=== PATIENT | male | born 1985 | race Caucasian/White ===

== ENCOUNTER 2016-08-18 23:07 | Inpatient (IN) | payer OTHER ==
[~2016-08-18] VITALS: Ht 177.8 cm; Wt 166.8 kg
--- NOTE | ~2016-08-18 | H ---
[facility] [place] [address] [place] [address] HISTORY AND PHYSICAL Name: RADHA HARDEN Room #: 441-P ADM IN M.R.#: [id number] Admission: 08/19/16 Attend Phys: Lacie Kerns MD Discharge: Date of : 89 Report #: [id number] THIS REPORT FOR: //name// CC: Jairo Kerns DATE OF SERVICE: 08/19/2016 CHIEF COMPLAINT: Dizziness and near syncope. HISTORY OF PRESENT ILLNESS: The patient is a 31-year-old male with history of hypertension, known to me from his admission at [facility], was transferred from [facility] for dizziness and near syncope. The patient has had dizziness and lightheadedness since last Wednesday. He describes a spinning sensation with some unsteady gait. The patient was initially seen in the ER at [facility] last Wednesday and then discharged from the ER and subsequently seen on Wednesday and was admitted to [facility]. He has had extensive workup done including a CT of the brain which was normal. He had a CT angio of the head and neck yesterday, which has been normal. He had an echocardiogram which showed normal ejection fraction. He had a V/Q scan done, which was reported as low probability for PE. The patient was evaluated by floral department specialist at [facility] and was advised outpatient stress test and was discharged yesterday back home. The patient presented back to [facility] ER yesterday evening because of persistent dizziness. He was subsequently transferred to [facility] for further care. He had dizziness with an episode of fall. The patient denies any loss of consciousness. No headache. Denies any visual disturbance. Denies any focal numbness or weakness of the extremity. No nausea, vomiting. No fever or chills. PAST MEDICAL HISTORY: Significant for hypertension and anxiety. PAST SURGICAL HISTORY: Knee surgery. HOME MEDICATIONS: Include lisinopril, Lexapro and aspirin. FAMILY HISTORY: Significant for hypertension and heart disease. REVIEW OF SYSTEMS: CONSTITUTIONAL: No recent weight loss, weight gain. No fever or chills. EYES: No change in vision. THROAT: Denies any sore throat. CARDIOVASCULAR: No chest pain, no palpitation. He did have dizziness. RESPIRATORY: No cough, expectoration. GASTROINTESTINAL: No nausea, vomiting, abdominal pain. GENITOURINARY: No dysuria, hematuria. [facility] [address] [place] [address] HISTORY AND PHYSICAL Name: RADHA HARDEN Room #: 441-P ADM IN M.R.#: [id number] Admission: 08/19/16 Attend Phys: Lacie Kerns MD Discharge: Date of : 89 Report #: [id number] NEUROLOGIC: No focal numbness or weakness of the extremities. PSYCHIATRIC: No anxiety and depression at present. The 12-point review of system is negative other than the positive and negative dictated in the history of present illness and the review of system. PHYSICAL EXAMINATION: VITAL SIGNS: Reviewed. Blood pressure is 115/90, heart rate of 80 per minute, afebrile. GENERAL: The patient is awake and alert, not in acute respiratory distress. He is obese. His BMI is 22.8. EYES: Pupils equal, reactive to light. Throat appears normal. NECK: Supple, no JVD, no bruit, no lymphadenopathy. CARDIOVASCULAR SYSTEM: S1, S2, negative S3, no murmur. CHEST: Bilateral air entry present. Clear on auscultation. ABDOMEN: Soft, bowel sounds present, no mass, no organomegaly, no tenderness. PERIPHERY: No pedal edema. No calf tenderness. Dorsalis pedis 1+. NEUROLOGICAL: Questionable nystagmus noted. Pupils are equal, reactive to light. Extraocular movements intact. No facial asymmetry noted. No cerebral signs noted. Power is 5/5 in upper and lower extremity. LABORATORY DATA: Reviewed. CT angio of the head and neck showed no acute abnormality. He had a V/Q scan done at [facility] is normal. EKG showed normal sinus rhythm without any significant ST segment or T-wave changes. Echocardiogram showed normal LV function, diastolic function was normal. He had a CT of chest done a few days ago, which showed bulky calcified masses in both geronimo and calcific granulomas consistent with possible prior histoplasmosis, probable fatty liver. ASSESSMENT AND PLAN: 1. Persistent dizziness and near syncope. His ear examination is normal limits, tympanic membrane appears normal. We will check his orthostatic vital signs and obtain an MRI of the brain to rule out any intracranial abnormality. The patient will be monitored on telemetry. Cardiology and Neurology has been consulted. The patient is scheduled for a stress test to rule out any ischemic heart disease. 2. Hypertension. The patient will be continued on his lisinopril. 3. Anxiety. He is to continue on Lexapro. 4. Deep vein thrombosis prophylaxis. He will be started on Lovenox for deep venous thrombosis prophylaxis. 5. Abnormal CT of the chest showing calcified lymph nodes consistent with possible prior granulomatous disease, possible histoplasmosis. 6. Pulmonary will also be consulted. 7. Possible sleep apnea. [facility] [address] [place] [address] HISTORY AND PHYSICAL Name: RADHA HARDEN Room #: 441-P [facility] IN M.R.#: [id number] Admission: 08/19/16 Attend Phys: Lacie Kerns MD Discharge: Date of : 89 Report #: [id number] Treatment plan has been explained to the patient in detail. <ELECTRONICALLY SIGNED> By: Alonzo Foster MD 08/19/16 1421 [id number] Alonzo Foster MD /nt
--- NOTE | ~2016-08-18 | H ---
[facility] [place] [address] HISTORY AND PHYSICAL Name: RADHA HARDEN Room #: 441-P ADM IN M.R.#: [id number] Admission: 08/19/16 Attend Phys: Alonzo Foster MD Discharge: Date of : 89 Report #: [id number] THIS REPORT FOR: //name// CC: Jairo Kerns REASON FOR CONSULTATION: Dizziness and atypical chest pain. HISTORY OF PRESENT ILLNESS: This is a very pleasant 31-year-old gentleman who last weekend had some vertigo. He was seen in the Emergency Room down in [facility] ____. The patient was very sedentary over the weekend and on Wednesday went to work when during mid morning he started having more vertigo, dizziness, lightheadedness. He had no unusual sensations but he got so dizzy that he fell off his chair. He developed some retrosternal discomfort which is described as a pleuritic sensation. It is a heavy and sharp component. He has never had any of this before. He does not have any significant orthopnea or PND. The discomfort was improved with time for the dizziness and vertigo, it is positional in nature. He is fine as though he lies in bed without movement. He has had a CT scan of the head and MRI is pending. He denies any palpitations and any limitations to activity prior to this presentation. ALLERGIES: No known drug allergies. MEDICATIONS AT HOME: Zestril, Lexapro, and aspirin. PAST MEDICAL HISTORY: Significant for: 1. Hypertension. 2. Anxiety. 3. Remote history of migraines. PAST SURGICAL HISTORY: Knee surgery. FAMILY HISTORY: Significant for hypertension, but the mother did have significant heart disease and in her 50s of coronary artery disease. REVIEW OF SYSTEMS: Except for symptoms previously mentioned and those commensurate with comorbid states and including the medical records, the 10-point review of systems is negative. PHYSICAL EXAMINATION: GENERAL: Well-developed, well-nourished white male, resting comfortably in no acute distress. HEENT: Normocephalic, atraumatic. Pupils are equal, round, reactive to light and accommodation. Extraocular muscles are intact. Sclerae and conjunctivae are anicteric. NECK: JVD is normal. Carotid upstrokes are bilaterally symmetrical. No bruits are heard. No thyromegaly. No lymphadenopathy. [facility] [address] [place] [address] HISTORY AND PHYSICAL Name: RADHA HARDEN Room #: 441-P [facility] IN M.R.#: [id number] Admission: 08/19/16 Attend Phys: Alonzo Foster MD Discharge: Date of : 89 Report #: [id number] LUNGS: Clear to auscultation. No wheezes, rhonchi or crackles. No CVA tenderness. CARDIAC: Demonstrates a regular rhythm. Normal first and second heart sounds. No ventricular or atrial gallops, no rubs noted. No murmurs. No lifts or heaves, PMI normal. ABDOMEN: Soft, nontender, nondistended. Normal bowel sounds. EXTREMITIES: Without cyanosis, clubbing or edema. Distal pulses are intact. DTR symmetrical. NEUROLOGIC: Cranial nerves 2-12 are grossly normal and symmetrical. PSYCHIATRIC: Alert, oriented with normal affect. SKIN: Warm and dry. RADIOLOGIC: CT scan as described above without any masses. MRI is pending. IMPRESSION: 1. Dizziness and lightheadedness, multifactorial but it does appear to be benign positional vertigo. I did discuss with him googling vertigo exercises so they can perform those at home. 2. Chest pain, atypical in nature. Perfusion scan was performed which was low risk. In view of this, I do not think that we need to purse with anything further at this juncture. 3. Dyslipidemia. Discussed the [place] [employer] step 1 diet. We discussed at length daily exercise, dietary restrictions to try and minimize the risk of significant watermelon inspector issues based on such a significant maternal family history. The patient does voice understanding. <ELECTRONICALLY SIGNED> By: Mykel Castillo MD 08/20/16 [id number] Mykel Castillo MD /nt
--- NOTE | ~2016-08-18 | HC ---
[facility] [address] [address] CONSULTATION Name: RADHA HARDEN Room #: 441-P ADM IN M.R.#: [id number] Admission: 08/19/16 Attend Phys: Alonzo Foster MD Discharge: Date of : 89 Report #: [id number] THIS REPORT FOR: //name// CC: Jairo Everardo Foster MD DATE OF SERVICE: 08/19/2016 REFERRING PROVIDER: Alonzo Foster MD REASON FOR CONSULTATION: Chest pain. HISTORY OF PRESENT ILLNESS: Our group was asked to see the patient in consultation while hospitalized at [facility], a pleasant 31-year-old male without any past pulmonary history, no history of tobacco use or other pulmonary disease except for maybe asthma as a child presented to [facility] 2 days ago with complaints of sternal chest pressure, felt like somebody is sitting on his chest when he awakened from sleep, also been consistent with some dizziness and lightheadedness. Denies any significant cough, congestion or wheezing or exertional dyspnea. Workup at that time was negative and was discharged, however, represented yesterday evening and was transferred for further management. The patient has had workup including ventilation and perfusion scan which revealed normal perfusion. Echocardiogram which showed no right ventricular dilatation, dysfunction or findings of pulmonary hypertension. CT of the chest, which revealed some calcifications, some right upper lobe fibrotic changes and some mediastinal lymph node suggestive of old granulomatous disease, no acute process identified, although CT images are not available to me at this time. He is awaiting further cardiac workup. Symptoms are not present at the time of my evaluation. ALLERGIES: None known. PAST MEDICAL HISTORY: 1. Hypertension. 2. Asthma as a child. 3. Anxiety disorder. PAST SURGICAL HISTORY: Includes right meniscal tear surgery through an arthroscopy. SOCIAL HISTORY: The patient is a never smoker. No significant alcohol consumption. 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 FAMILY HISTORY: Significant for strong family history of coronary artery [facility] [address] [place] [address] CONSULTATION Name: RADHA HARDEN Room #: 441-P [facility] IN M.R.#: [id number] Admission: 08/19/16 Attend Phys: Alonzo Foster MD Discharge: Date of : 89 Report #: [id number] disease with the mother also with coronary disease. REVIEW OF SYSTEMS: CONSTITUTIONAL: No fevers, chills or sweats, change in weight or appetite. ENT: No upper respiratory congestion, rhinorrhea or dysphagia. CARDIOVASCULAR: As described in HPI. GASTROINTESTINAL: No nausea, vomiting. Has had some mild epigastric discomfort and nausea at times. GENITOURINARY: No dysuria, no frequency. INTEGUMENT: Denies any new rash. MUSCULOSKELETAL: No joint pains or swelling. NEUROLOGIC: The patient notes dizziness as described in HPI, somewhat disequilibrium. PHYSICAL EXAMINATION: VITAL SIGNS: Afebrile, pulse 80s, respiratory rate 20, blood pressure 145/78, oxygen saturation 97% on 2 liters. GENERAL: This is an obese young male in no distress. HEENT: Clear oropharynx, Mallampati 3 airway. NECK: Supple, no lymphadenopathy. LUNGS: Clear. No wheezes or crackles. CARDIOVASCULAR: Heart regular. No murmurs or gallops. ABDOMEN: Obese, soft, mild epigastric tenderness noted. EXTREMITIES: Warm, 2+ pulses. No significant edema. LABORATORY DATA: CBC normal. Chemistry profile also normal except for mildly elevated glucose 154. Troponin normal, albumin normal. Arterial blood gas done on room air revealed pH 7.36, pCO2 of 44, pO2 of 65, bicarbonate 25. IMPRESSION: 1. Chest pain of unclear etiology. CT images unavailable. We will attempt to get current disc, continue to work on a computer in the radiology department or have it resend electronically from [facility] to evaluate with normal perfusion scan, echo. The patient unlikely has a significant pulmonary disease. We will check spirometry, pre and post-bronchodilator to further evaluate and await further cardiac workup. 2. Probable obstructive sleep apnea based on exam and history of mild restless sleep. Would consider further sleep evaluation if indicated. 3. Mild hypoxemia, is not requiring supplemental oxygen. We will reevaluate further, check TSH. By: 03 1147 Justo Acosta MD /nt
[2016-08-19] VITALS (10 sets, daily range): BP systolic 129–164; BP diastolic 64–105
[2016-08-19] MEDS ORDERED: LISINOPRIL10 MG PO (00:25)
[2016-08-19] MEDS ORDERED: LEXAPRO 10 MG T10 M1 PO (00:26)
[2016-08-19] MEDS ORDERED: ASPIR 8181 M1 PO (00:26)
[2016-08-19 07:09] LABS: ABG SAMPLE TYPE ARTERIAL; HCO3 24.6 mmol/L (22.0-26.0); LACTATE 1.75 mmol/L (0.5-2.0); O2(CT) 19.5 mL/dL (15.0-23.0); O2Hb 91.1 % (92.0-98.0); PCO2 44.2 mmHg (35.0-45.0); PO2 65.4 mmHg (80.0-100.0); pH 7.363 (7.360-7.450); sO2 92.1 % (92.0-98.0); tCO2 25.9 mmol/L (24.0-30.0)
[2016-08-19 07:12] LABS: STICK SITE R.RADIAL
[2016-08-19 07:49] LABS: HEMATOCRIT 41.6 % (42.0-52.0); HEMOGLOBIN 14.1 gm/dL (14.0-18.0); MCH 29.1 pg (26.0-34.0); MCHC 33.9 g/dL (28.0-37.0); MCV 85.8 fL (80.0-100.0); RBC 4.85 mil/uL (4.50-6.00); RDW 13.2 % (10.5-14.5)
[2016-08-19 08:04] LABS: ALBUMIN 3.6 g/dL (3.4-5.0); ALKALINE PHOSPHATASE 96 U/L (46-116); ANION GAP 11 mmol/L (7-16); BUN 11 mg/dL (7-18); CALCIUM 9.2 mg/dL (8.5-10.1); CHLORIDE 103 mmol/L (98-107); CO2 22 mmol/L (21-32); CREATININE 0.7 mg/dL (0.6-1.3); GLUCOSE 154 mg/dL (70-99); POTASSIUM 4.3 mmol/L (3.5-5.1); SGOT 34 U/L (15-37); SGPT 50 U/L (30-65); SODIUM 136 mmol/L (136-145); TOTAL BILIRUBIN 0.7 mg/dL (<0.1-1.0); TOTAL PROTEIN 7.9 g/dL (6.4-8.2); TROPONIN-I < 0.04 ng/mL (<0.04-0.07)
[2016-08-19 12:21] LABS: CHOLESTEROL 183 mg/dL (<200); HDL CHOLESTEROL 38 mg/dL (>40); LDL CHOLESTEROL 132 mg/dL (<100); TC:HDL 4.8 Ratio (Not establshd); TRIGLYCERIDE 69 mg/dL (<150); VLDL 14 mg/dL (<40)
[2016-08-19 12:22] LABS: FOLIC ACID 12.9 ng/mL (8.6-58.9); TSH 1.375 uIU/mL (0.358-3.740)
[2016-08-19 22:06] LABS: GLYCOHEMOGLOBIN (HGB A1C) 5.7 % (4.8-5.6)
[2016-08-20] VITALS (8 sets, daily range): BP systolic 131–159; BP diastolic 60–88
[2016-08-20 05:33] LABS: ABSOLUTE NEUTROPHILS 8.6 thou/uL (1.4-8.2); BASOPHILS 0.4 % (0.0-2.0); EOSINOPHILS 0.4 % (0.0-3.0); HEMATOCRIT 39.2 % (42.0-52.0); HEMOGLOBIN 13.2 gm/dL (14.0-18.0); LYMPHOCYTES 21.2 % (24.0-44.0); MCH 28.9 pg (26.0-34.0); MCHC 33.5 g/dL (28.0-37.0); MCV 86.2 fL (80.0-100.0); MONOCYTES 6.6 % (1.0-8.0); PLATELET COUNT 360 thou/uL (150-400); POLYS 71.4 % (36.0-66.0); RBC 4.55 mil/uL (4.50-6.00); RDW 13.5 % (10.5-14.5); WBC 12.1 thou/uL (4.0-11.0)
[2016-08-20 05:38] LABS: MANUAL DIFF NO
[2016-08-20 05:48] LABS: CALCIUM 8.8 mg/dL (8.5-10.1); CREATININE 0.8 mg/dL (0.6-1.3); POTASSIUM 3.7 mmol/L (3.5-5.1)
[2016-08-21 04:00] VITALS: BP 118/58
[2016-08-21 08:00] VITALS: BP 132/87; BP 136/85; BP 93/60
[2016-08-21] MEDS ORDERED: ATORVASTATIN CA20 MG PO (11:56)
[2016-08-21 12:47] VITALS: BP 136/85
== END 2016-08-21 13:28 | disposition home or self-care (01) | DRG 149 ==
LOC: 4S 23:07
PROVIDERS: Internal Medicine; Internal Medicine Pulmonary Disease; Nurse Practitioner; Psychiatry & Neurology Neurology
DX: H81.10 Benign paroxysmal vertigo, unspecified ear (principal); I10 Essential (primary) hypertension; F41.9 Anxiety disorder, unspecified; E78.5 Hyperlipidemia, unspecified; J45.909 Unspecified asthma, uncomplicated; F32.9 Major depressive disorder, single episode, unspecified; R09.02 Hypoxemia; Z96.659 Presence of unspecified artificial knee joint; G43.909 Migraine, unspecified, not intractable, without status migrainosus; Z79.82 Long term (current) use of aspirin; Z79.899 Other long term (current) drug therapy; Z82.49 Family history of ischemic heart disease and other diseases of the circulatory system
CPT/HCPCS: 10100